=== PATIENT | female | born 1945 | race Caucasian/White ===

== ENCOUNTER 2017-07-30 06:01 | Day surgery (SDC) | payer MEDICARE, OTHER ==
[2017-07-27 11:26] VITALS: BMI 23.1
[~2017-07-30 06:01] MED LIST: Cyclopentolate 1% Opth Drop 2 ML BOT FS SCH; Fluorouracil 100 MG, Enoxaparin Sodium 25 MG, EPINEPHrine 0.3 MG in Ophthalmic Irrigati... FS SCH; Phenylephrine HCl 2.5% Ophth Soln 5 ML BOT FS SCH
[2017-07-30] MEDS ORDERED: Phenylephrine HCl 2.5% Ophth Soln 5 ML BOT ONE (06:07)
[2017-07-30] MEDS ORDERED: Cyclopentolate 1% Opth Drop 2 ML BOT ONE (06:07)
[2017-07-30] MEDS ORDERED: Midazolam HCl 2 mg/2 ml Vial ONE (06:14)
[2017-07-30] MEDS ORDERED: Diprivan 20 ML ONE (06:14)
[2017-07-30] MEDS ORDERED: Fentanyl 100 MCG/2 ML VIAL ONE (06:14)
[2017-07-30] MEDS ORDERED: Propofol 200 MG/20 ML VIAL ONE (07:03)
[2017-07-30] MEDS ORDERED: Ondansetron HCl/PF 4 MG/2 ML Vial ONE ×2 (07:03→07:17)
[2017-07-30] MEDS ORDERED: Lidocaine 2% PF 10 ML AMP (For Epidural Use) ONE (07:03)
--- NOTE | 2017-07-30 08:07 | OP ---
DATE OF PROCEDURE 07/30/2017 PREOPERATIVE DIAGNOSIS: Macular hole, left eye. POSTOPERATIVE DIAGNOSIS: Macular hole, left eye. PROCEDURE: Pars plana vitrectomy, internal limiting membrane peel, left eye. SURGEON: Dr. Ezequiel Victoria ANESTHESIA: Local with monitored anesthesia care. COMPLICATIONS: None. PROCEDURE IN DETAIL: The patient was identified in the preoperative holding area. Appropriate info rmed consent for the planned surgical procedure on the left eye had been obtained. The patient was transported to the operative suite where appropriate cardiopulmonary monitoring was established. Lo viviana anesthesia was obtained using retrobulbar and modified Van Lint lid block using 50/50 mixture of 4% lidocaine and 0.75% bupivacaine. The patient was prepped and draped in the usual sterile manner for ophthalmic surgery on the left eye. Lid speculum was placed in the left eye. The 25-gauge tro cars were placed in conjunctiva and sclera supratemporally, inferotemporally, and supranasally. Inf usion line was placed inferotemporally. Light pipe and vitreous cutter were inserted into the eye. Core of vitrectomy was performed. Posterior hyaloid face was elevated using vacuum suction. Indoc yanine green dye was infused into the eye, identifying the internal limiting membrane. This was thi vated using membrane scraper and peeled across the macula in 1 piece using end griping forceps. Com plete air fluid exchange was performed with 10 minutes being allowed for fluid to drain posteriorly. Laser was placed behind the sclerotomy sites. Then 28% sulfur hexafluoride gas was infused into t he eye. Trocars were removed and eye was noted to retain pressure well. Retrobulbar Kenalog and acharya bconjunctival Ancef were placed, antibiotic ointment placed, and the eye was patched and shielded. The patient was taken to the postoperative recovery unit in good condition suffered no immediate per ioperative complications. DISCHARGE INSTRUCTIONS: The patient was instructed to keep patch and shield on, avoid flat on back positioning, and follow up in the morning with Dr. Victoria.
== END 2017-07-30 08:42 | disposition home or self-care (01) ==
LOC: SDC 06:01
PROVIDERS: ATTEND Ophthalmology Retina Specialist
PROC: 08T53ZZ Resection of Left Vitreous, Percutaneous Approach (ICD-10-PCS; principal; 2017-07-30)
PROC: 08NF3ZZ Release Left Retina, Percutaneous Approach (ICD-10-PCS; 2017-07-30)
DX: H35.342 Macular cyst, hole, or pseudohole, left eye (principal); I10 Essential (primary) hypertension; E06.3 Autoimmune thyroiditis; F17.200 Nicotine dependence, unspecified, uncomplicated; E78.5 Hyperlipidemia, unspecified; Z88.0 Allergy status to penicillin; Z79.82 Long term (current) use of aspirin; Z79.810 Long term (current) use of selective estrogen receptor modulators (SERMs); Z79.899 Other long term (current) drug therapy; Z86.718 Personal history of other venous thrombosis and embolism
CPT/HCPCS: 67025; J0171; J1650; J2001; J2250; J2405; J2704; J3010; J9190

== ENCOUNTER 2017-12-29 14:30 | Outpatient (CLI) | payer MEDICARE, OTHER | END 2017-12-29 14:31 | disposition home or self-care (01) | LOC: BICMAMMO 14:30 | PROVIDERS: ATTEND Obstetrics & Gynecology | DX: Z13.820 Encounter for screening for osteoporosis (principal); M85.88 Other specified disorders of bone density and structure, other site; M85.859 Other specified disorders of bone density and structure, unspecified thigh | CPT/HCPCS: 77080 ==

== ENCOUNTER 2020-11-01 06:50 | Outpatient (CLI) | payer MEDICARE, OTHER ==
[2020-11-01 12:31] LABS: Hemoglobin 14.2 g/dL (12.0-16.0); Mean Corpuscular HGB CONC 32.2 G/DL (32.0-36.0); Mean Corpuscular Volume 93.2 fl (80.0-100.0); Mean Platelet Volume 11.5 fl (7.4-10.4); Platelet Count 274 10x3/uL (130-400); RBC Distribution Width 13.3 % (11.5-14.5); Red Blood Cell (RBC) Count 4.73 10x6/uL (3.90-5.20); White Blood Cell (WBC) Count 6.2 10x3/uL (4.5-11.0)
[2020-11-01 21:58] LABS: SARS-CoV-2 MS2 Positive; SARS-CoV-2 N Gene Negative; SARS-CoV-2 S Gene Negative; SARS-CoV-2 by NAA Not Detected (NotDetected); SARS-CoV-2 orf1ab Negative
== END 2020-11-01 06:51 | disposition home or self-care (01) ==
LOC: LABBT 06:50
PROVIDERS: ATTEND Obstetrics & Gynecology
DX: Z01.812 Encounter for preprocedural laboratory examination (principal); Z20.822 Contact with and (suspected) exposure to COVID-19; N95.0 Postmenopausal bleeding
CPT/HCPCS: 85027; U0003; 87635

== ENCOUNTER 2020-11-06 06:11 | Day surgery (SDC) | payer MEDICARE, OTHER ==
--- NOTE | 2020-11-01 17:02 | HP ---
She is scheduled for surgery on 11/06/2020. HISTORY OF PRESENT ILLNESS: Ms. Farrell is a 75-year-old white female G3, P2, A1, who has onset of some postmenopausal spotting. This originated back in June. At that time, she underwent a transvaginal ultrasound that showed her uterus to be approximately 5 x 2 cm with a noted thickened endometrial lining of 5.1 mm. Endometrial biopsy was attempted at that time by Dr. Lewis, but the cervix again was too stenotic. She was on no hormone replacement therapy. The cervix was noted to be flush with the vagina. She had a followup ultrasound again on August 14. At that time, the lining again was noted to be thickened at 5.6 mm showing an increase in the growth and still having some brownish spotting. I attempted a biopsy in the office again. The cervix was flushed, small stenotic os up against the vagina. Due to the concern for the continued dark brownish discharge and thickened endometrial lining, recommend surgical intervention. PAST MEDICAL HISTORY: The patient's past medical history is significant for chronic hypertension, hypothyroidism. She has also osteopenia. PAST SURGICAL HISTORY: Cataract surgery, thyroidectomy, and appendectomy in the past. FAMILY HISTORY: Mother with lymphoma and sister with brain cancer. CURRENT MEDICATIONS: 1. Amlodipine 5 mg tablet daily. 2. [place] Thyroid 30 mg tablet daily. 3. Duloxetine 60 mg tablet daily. PHYSICAL EXAMINATION: VITAL SIGNS: Height is 5 feet and 4 inches, weight 155, BMI 26.6. Blood pressure 130/80, pulse 79, and respiratory rate 18. HEENT: Within normal limits. CHEST: Clear to auscultation. HEART: Regular rate and rhythm. S1 and S2 heart sounds. No murmurs, rubs, or gallops. ABDOMEN: Soft, nontender, and nondistended with no palpable masses. PELVIC: No vulvar lesions and no vaginal lesion seen. Cervix was noted to be flushed with the vagina in stenotic os. Uterus is small, nontender. Adnexa nontender. No masses. ASSESSMENT: This is a 75-year-old white female with continues postmenopausal spotting with mildly thickened endometrial lining approximately 6 mm. Stenotic cervical os with cervix flush to the vagina, difficult to obtain a biopsy. PLAN: To proceed with definitive surgical therapy and evaluation with a robotic TLH-BSO. The patient is aware that we may have to convert to a CHANNING-BSO if unable to establish interface of the cervix with the vagina. The risks and benefits of procedure had been discussed in detail and set for surgery on 11/06/2020. Job ID: [id number]
[2020-11-05 09:31] VITALS: BMI 26.6
[2020-11-06] MEDS ORDERED: CeleCOXIB 100 MG CAP ONE (06:15)
[2020-11-06] MEDS ORDERED: Famotidine/PF 20 mg/2ml Vial ONE (06:15)
[2020-11-06] MEDS ORDERED: Levofloxacin 500 mg/D5W 100 ml Premix Bag ONE (06:15)
[2020-11-06] MEDS ORDERED: Clindamycin/D5W 900 mg/50 ml Premix Bag ONE (06:15)
[2020-11-06] MEDS ORDERED: Gabapentin 300 MG CAP ONE (06:15)
[2020-11-06] MEDS ORDERED: Scopolamine 1.5 mg/72 hour Patch ONE (06:45)
[2020-11-06] MEDS ORDERED: Fentanyl 100 MCG/2 ML VIAL ONE (06:54)
[2020-11-06] MEDS ORDERED: Lidocaine 2% w/Epinephrine 1:200K 20 ML VIAL ONE (06:58)
[2020-11-06] MEDS ORDERED: Bupivacaine PF 0.5% 30 ML VIAL ONE (06:58)
[2020-11-06] MEDS ORDERED: Ondansetron PF 4 MG/2 ML Vial IVP PRN (09:18)
[2020-11-06] MEDS ORDERED: Acetaminophen 325 MG TAB PO PRN (09:18)
[2020-11-06] MEDS ORDERED: Promethazine HCl 25 MG/ML VIAL IM PRN (09:18)
[2020-11-06] MEDS ORDERED: Bisacodyl 10 MG SUPP PR PRN (09:18)
[2020-11-06] MEDS ORDERED: diphenhydrAMINE 25 MG CAP PO PRN (09:18)
[2020-11-06] MEDS ORDERED: Simethicone Chewable 80 MG TAB PO PRN (09:18)
[2020-11-06] MEDS ORDERED: Morphine 4 MG/ML VIAL SLOW IVP PRN (09:18)
[2020-11-06] MEDS ORDERED: Morphine 2 MG/ML VIAL SLOW IVP PRN (09:18)
--- NOTE | 2020-11-06 10:18 | OP ---
DATE OF PROCEDURE: 11/06/2020 PREOPERATIVE DIAGNOSES: 1. A 75-year-old white female with recurrent postmenopausal bleeding. 2. Endometrial thickness is 6 mm. 3. Stenotic cervix, unable to access, biopsy. 4. Desires definitive surgical therapy and diagnosis. POSTOPERATIVE DIAGNOSES: 1. A 75-year-old white female with recurrent postmenopausal bleeding. 2. Endometrial thickness is 6 mm. 3. Stenotic cervix, unable to access, biopsy. 4. Desires definitive surgical therapy and diagnosis. PROCEDURE PERFORMED: Robotic total laparoscopic hysterectomy with bilateral salpingectomy. LOZENGE MAKER SURGEON: Danette Zavala PA-C ANESTHESIA: General . ESTIMATED BLOOD LOSS: 25 mL. COMPLICATIONS: None. COUNTS: Correct x2. FINDINGS: 1. Cervix was flushed against the vaginal wall with a stenotic cervix, status post dilatation. 2. Normal-appearing postmenopausal uterus, tubes, and ovaries. 3. Clear urine present in Parker catheter and bladder was watertight to fluid distention postop. 4. Bilateral ureteral peristalsis visualized postop. PATHOLOGY: Uterus, cervix, bilateral tubes and ovaries. DISPOSITION: Recovery room, stable. DESCRIPTION OF PROCEDURE: The patient previously received informed consent in regard to surgery. She was taken back to the operating room, where she received a general endotracheal anesthetic agent without complications. She was placed in dorsal lithotomy position. Parker catheter was placed after she had been prepped. A side-arm speculum was placed in the vagina and the previously noted findings of the cervix were documented. The palpable firmness of the cervix area was grasped with a single-tooth tenaculum. I was then able to forcefully pass a uterine sound, then did open the cervix and it sounded approximately 6 cm. I then serially dilated her cervix with Hegar dilators. The size [address] which enabled me to place a small 6 cm RUDDY uterine manipulator with 3.0 cm cervical cup. Tenaculum and speculum were removed. Attention was then turned to the abdomen, where perspective trocar sites were infiltrated with 0.5% Marcaine with epinephrine. A 12 mm infraumbilical incision was made. Veress needle was placed in the peritoneal cavity and the patient's pressure was noted to be less than 5 mmHg. Abdomen was insufflated to patient pressure of 15, approximately 4.5 L of carbon dioxide gas. Veress needle was then removed bilateral. Then, a 12 mm trocar was placed. Laparoscope was introduced through trocar sleeve and proper entry was confirmed. Additional bilateral lower quadrant 8 mm trocars with the right upper quadrant 11 mm assistant business manager port was placed. The robot was docked and then I broke scrub and proceeded to carry out the procedure from the operative console. My assistants remained at the bedside. The uterus was elevated. It was noted that the manipulator had perforated the fundus to the pressure. The manipulator still moved the uterus well. The left fallopian tube was grasped by my assistant business manager and I coagulated the IP ligament on the left side, transected it and then serial coagulation of broad ligament hugging close to the uterus was carried out until the left round ligament was reached. It was coagulated and transected. The anterior leaf of the broad ligament was entered. The vesicouterine peritoneum was incised in layering technique dropping the bladder safely past the cervical vaginal margin. The left uterine vessels were skeletonized and coagulated in the internal cervical os region. This was carried out in likewise fashion on the patient's right side, again coagulating the IP ligament, transecting it and serial coagulation of broad ligament until the right round ligament was reached, coagulating and transecting it. Anterior leaf of the broad ligament was then entered and the vesicouterine peritoneum was continued to be taken down in layering technique dropping the bladder past cervical vaginal margin. The uterine vessels were coagulated in the internal cervical os region. We then distended the bladder to make sure it was intact and the position was passed through the anticipated anterior colpotomy, which it was. Then, the anterior colpotomy was performed starting from 12 to 3 and 12 to 9 o'clock, completed from 6 to 3 and 6 to 9 o'clock. The specimen was delivered in the vaginal vault. The vaginal cuff was then coagulated of any areas of oozing with bipolar fenestrated cautery. My monopolar scissors were switched for a Samy needle party bus driver. Stratafix suture was brought in by my assistant business manager and then I closed the vaginal cuff in double layer closure starting from the right angle to the left angle back towards the right angle. The excess suture and needle were then removed through the right upper quadrant port. All the pedicle sites were inspected and noted to be hemostatic. Bilateral ureteral peristalsis was visualized postprocedure. Pelvic skin was irrigated and suctioned and hemostasis confirmed. We then undocked the right robot. Trocar sleeves were removed. A deep stitch of 0 Vicryl was placed in the umbilical fascia in a [id number] stitch fashion. The rest of the trocar sites were closed with 4-0 Monocryl sutures and Dermabond. Inspection of the vagina, there was noted to be some vaginal bleeding and bilateral sulcal tears from the manipulator, which were repaired with [id number] stitch of 0 Vicryl bilaterally and then a [id number] stitch right at the posterior introitus was placed for a small laceration which with hemostasis noted. The patient was then awakened from the anesthesia and transferred to recovery room in stable condition. Job ID: [id number]
[2020-11-06] MEDS ORDERED: Lidocaine 1% PF 5 ML VIAL ONE (11:00)
[2020-11-06] MEDS ORDERED: Rocuronium Bromide 10 MG/ML (10ML VIAL) ONE (11:00)
[2020-11-06] MEDS ORDERED: PROPOFOL 200 MG/20 ML VIAL ONE (11:00)
[2020-11-06] MEDS ORDERED: ePHEDrine 50 MG/ML VIAL ONE (11:00)
[2020-11-06] MEDS ORDERED: Dexamethasone 20 MG/5 ML VIAL ONE (11:00)
[2020-11-06] MEDS ORDERED: Ondansetron PF 4 MG/2 ML Vial ONE (11:00)
[2020-11-06] MEDS ORDERED: Glycopyrrolate 0.2 MG/ML 5 ML SYRINGE ONE (11:00)
[2020-11-06] MEDS: Sodium Chloride 0.9% 1,000 ML IV SCH ×2 (12:05→18:13)
[2020-11-06] MEDS: Ketorolac Tromethamine 30 MG/ML VIAL IVP SCH ×2 (12:06→18:12)
[2020-11-06] MEDS ORDERED: HYDROcodone/Acetaminophen 5/325 mg Tablet PO PRN ×2 (16:01)
[2020-11-07] MEDS: Ketorolac Tromethamine 30 MG/ML VIAL IVP SCH ×2 (00:11→06:13)
[2020-11-07] MEDS: Sodium Chloride 0.9% 1,000 ML IV SCH (00:55)
[2020-11-07] MEDS ORDERED: Levothyroxine Sodium 75 MCG TAB PO SCH (06:00)
--- NOTE | 2020-11-07 07:44 | PDOC.EVN ---
Event Note - Event Note Event Note: Tolerating diet. Good pain control. Ambulating and voiding. O:AFVSS ABDOMEN is soft. Trochar sites dry and intact. A/P:Post op day 1 from robotic tlh/bso for postmenopausal bleeding . Progressing well. D/c cem today of continues to do well. has f/u 2 and 6 weeks....
[2020-11-07 07:48] LABS: Hemoglobin 12.4 g/dL (12.0-16.0); Mean Corpuscular HGB CONC 32.7 g/dL (32.0-36.0); Mean Corpuscular Hemoglobin 30.9 pg (27.0-31.0); Mean Corpuscular Volume 94.6 fL (78.0-98.0); Mean Platelet Volume 8.8 fL (7.4-10.4); Platelet Count 217 thou/uL (130-400); RBC Distribution Width 12.1 % (11.5-14.5); White Blood Cell (WBC) Count 13.7 thou/uL (4.8-10.8)
[2020-11-07 08:02] VITALS: BP 123/58; TEMP 99
--- NOTE | 2020-11-07 08:15 | DIS ---
DATE OF ADMISSION: 11/06/2020 DATE OF DISCHARGE: 11/07/2020 DATE OF SURGERY: 11/06. DIAGNOSES: 1. Abnormal postmenopausal vaginal bleeding with endometrial lining greater than 5 mm on transvaginal ultrasound. 2. Stenotic cervical os. PROCEDURE PERFORMED: Robotic total laparoscopic hysterectomy bilateral salpingo oophorectomy. SUMMARY OF HOSPITAL COURSE: Ms. Farrell is a 75-year-old white female, who has been having some light vaginal spotting in the past several months. She was noted to have an endometrial lining of over 5 mm on transvaginal ultrasound for evaluation. An endometrial biopsy was attempted, but stenotic cervical os. We were unable to obtain . She had a followup ultrasound approximately 6 weeks later and the endometrial lining had increased from 5.2 to 5.8 mm. She continued to have some intermittent spotting issues. She elected to proceed with definitive surgical therapy and diagnosis. A robotic TLH-BSO was performed on 11/06/2020. Postoperatively, the patient has done well. Her vital signs remained stable. She is ambulating, voiding without difficulty. Pain control is adequate. Pathology is pending at the time of discharge. She has discharge medications of tramadol 50 mg q.6 hours p.r.n. pain, [id number] ibuprofen and Tylenol as directed. Followup is scheduled in 2 and 6 weeks postoperatively. We will review the pathology specimen results when this is available. Job ID: [id number]
[2020-11-07] MEDS ORDERED: Cholecalciferol 1,000 UNITS (25 MCG) TAB PO SCH (09:00)
[2020-11-07] MEDS ORDERED: Amlodipine 5 MG TAB PO SCH (09:00)
[2020-11-07] MEDS ORDERED: Ubidecarenone 50 MG CAP PO SCH (09:00)
[2020-11-07] MEDS ORDERED: Fish Oil 1,000 MG CAP PO SCH (09:00)
== END 2020-11-07 10:15 | disposition home or self-care (01) ==
LOC: SDC 06:11 → 3SE 09:18 → SDC 11-07 10:15
PROVIDERS: ATTEND Obstetrics & Gynecology
PROC: 0UT94ZZ Resection of Uterus, Percutaneous Endoscopic Approach (ICD-10-PCS; principal; 2020-11-06)
PROC: 0UT74ZZ Resection of Bilateral Fallopian Tubes, Percutaneous Endoscopic Approach (ICD-10-PCS; 2020-11-06)
DX: D25.9 Leiomyoma of uterus, unspecified (principal); N88.2 Stricture and stenosis of cervix uteri; N95.0 Postmenopausal bleeding; I10 Essential (primary) hypertension; E03.9 Hypothyroidism, unspecified; M85.80 Other specified disorders of bone density and structure, unspecified site; Z79.899 Other long term (current) drug therapy; Z88.0 Allergy status to penicillin; Z88.5 Allergy status to narcotic agent
CPT/HCPCS: 58571; 85027; 86850; 86900; 86901; 88307; J2270; 36415; J1885; J1956; J3010; J3490; S0020; S0028